=== PATIENT | male | born 1995 | race Hispanic/Latino ===

== ENCOUNTER 2018-11-14 03:07 | Emergency (ER) | payer MEDICAID ==
[2018-11-14 03:17] VITALS: O2SAT 99
--- NOTE | 2018-11-14 04:24 | C.PDOC ---
History Of Present Illness 23 year old male presents with a tingling sensation to the left facial area, left hand, and left foot intermittently since last night. Denies weakness, numbness, headache, loss of speech, dizziness, or syncope. Patient has Hx of major depressive disorder and bipolar disorder, noncompliant with meds because he feels they are not helpful. He reports tingling has been improving since arriving to ER. Time Seen by Provider: 11/14/18 03:19 Chief Complaint (Nursing): Upper Extremity Problem/Injury History Per: Patient History/Exam Limitations: no limitations Onset/Duration Of Symptoms: Hrs, Intermittent Episodes Current Symptoms Are (Timing): Better Quality: Other (Tingling) Recent travel outside of the [place]: No Past Medical History Reviewed: Historical Data, Nursing Documentation, Vital Signs Vital Signs: Last Vital Signs Temp 98.3 F 11/14/18 03:15 Pulse 97 H 11/14/18 03:15 Resp 19 11/14/18 03:15 BP 117/71 11/14/18 03:15 Pulse Ox 99 11/14/18 03:15 Family History: States: No Known Family Hx - Social History Hx Alcohol Use: No Hx Substance Use: No - Immunization History Hx Tetanus Toxoid Vaccination: No Review Of Systems Constitutional: Negative for: Fever, Chills Cardiovascular: Negative for: Chest Pain, Palpitations Gastrointestinal: Negative for: Nausea, Vomiting Musculoskeletal: Negative for: Neck Pain Neurological: Positive for: Other (Tinging sensation to left facial area, left hand, and left foot. No syncope.). Negative for: Weakness, Numbness, Change in Speech, Headache, Dizziness Physical Exam - Physical Exam Appears: Non-toxic, Other (Obese) Skin: Normal Color, Warm, Dry Head: Atraumatic, Normacephalic Eye(s): bilateral: Normal Inspection, PERRL, EOMI Oral Mucosa: Moist Neck: Normal, Supple Chest: Symmetrical, No Tenderness Cardiovascular: Rhythm Regular Respiratory: Normal Breath Sounds, No Rales, No Rhonchi, No Wheezing Extremity: Normal ROM (x4) Pulses: Left Radial: Normal, Right Radial: Normal, Left Dorsalis Pedis: Normal, Right Dorsalis Pedis: Normal Neurological/Psych: Oriented x3, Normal Speech, Normal Cranial Nerves, Normal Motor, Normal Sensation, Other (No facial droop) ED Course And Treatment O2 Sat by Pulse Oximetry: 99 (Room air) Pulse Ox Interpretation: Normal Progress Note: Accucheck 136mg/dL. Mother at bedside is concerned states "strokes run in the family", patient with no neuro deficits at this time but was offered head CT, patient refused, patient understands the risks and benefits of CT but prefers to follow up with Dr. Espinosa and will return if symptoms worsen. Disposition Counseled Patient/Family Regarding: Diagnosis, Need For Followup - Disposition Referrals: [facility] [Outside] Disposition: HOME/ ROUTINE Disposition Time: 04:22 Condition: GOOD Additional Instructions: Please make appointment with Dr Espinosa for further evaluation Return to ER if symptoms worsen Instructions: Paresthesias (DC) Forms: [employer] (Canadian) - Clinical Impression Clinical Impression: Paresthesia - PA / GAS CHARGER / Resident Statement MD/DO has reviewed & agrees with the documentation as recorded. - Scribe Statement The provider has reviewed the documentation as recorded by the Scribe Jani Taylor All medical record entries made by the Scribe were at my direction and personally dictated by me. I have reviewed the chart and agree that the record accurately reflects my personal performance of the history, physical exam, medical decision making, and the department course for this patient. I have also personally directed, reviewed, and agree with the discharge instructions and di sposition.
[2018-11-14 04:51] VITALS: BP 124/78; PULSE 78; RESP 17; TEMP 98.6
== END 2018-11-14 04:50 | disposition home or self-care (01) ==
LOC: C.ER 03:07
DX: R20.2 Paresthesia of skin (principal); Z91.14 Patient's other noncompliance with medication regimen

== ENCOUNTER → 2018-11-14 20:45 | Emergency (ER) | payer MEDICAID | END | disposition left against medical advice (07) | LOC: C.ER 20:45 | DX: Z02.89 Encounter for other administrative examinations (principal); R20.2 Paresthesia of skin ==